=== PATIENT | male | born 1970 | race Caucasian/White ===

== ENCOUNTER → 2021-05-16 | Outpatient (CLI) | payer BC ==
--- NOTE | 2021-05-16 12:37 | KCIC ---
EXAM: Chest, 2 views. HISTORY: Dyspnea. COMPARISON: None. FINDINGS: 2 views of the chest are obtained. There is right lower lobe atelectasis or interstitial in filtrate. There is no consolidation, pleural effusion or pneumothorax. The heart is normal in size IMPRESSION: Right lower lobe atelectasis or interstitial infiltrate. Electronically signed by: Tennille Casanova MD (05/16/2021 12:35 PM) [id number]
== END ==
LOC: KCIC 10:53
PROVIDERS: ATTEND Clinical Nurse Specialist Family Health
DX: J98.11 Atelectasis (principal); R06.09 Other forms of dyspnea; R05.9 Cough, unspecified; Z87.01 Personal history of pneumonia (recurrent)
CPT/HCPCS: 71046